=== PATIENT | female | born 1990 | race Caucasian/White ===

== ENCOUNTER 2020-04-13 08:33 | Emergency (ER) | payer BC ==
[~2020-04-13] VITALS: Ht 157.5 cm; Wt 100.0 kg
[~2020-04-13 08:33] MED LIST: ONDA8TAB9 PO
[2020-04-13] MEDS ORDERED: ondansetron 4mg rapidly disintigrating tab PO ONE (09:25)
[2020-04-13 10:15] LABS: MONOCYTES # (AUTO) 0.4 X10'3 (0-0.9); WHITE BLOOD COUNT 5.6 X10'3 (4.5-11.0)
[2020-04-13 10:16] LABS: BASOPHILS % (AUTO) 0.5 % (0-1); EOSINOPHILS % (AUTO) 0.3 % (0-6); HEMATOCRIT 46.1 % (35.0-45.0); HEMOGLOBIN 15.9 g/dl (12.0-16.0); LYMPHOCYTES # (AUTO) 1.7 X10'3 (1.1-4.8); LYMPHOCYTES % (AUTO) 30.5 % (21-51); MEAN CORPUSCULAR HEMOGLOBIN 31.4 PG (27.0-31.0); MEAN CORPUSCULAR HGB CONC 34.5 g/dL (33.0-36.5); MEAN PLATELET VOLUME 7.6 FL (7.4-10.4); MONOCYTES % (AUTO) 7.8 % (2-12); NEUTROPHILS # (AUTO) 3.4 X10'3 (1.8-7.7); NEUTROPHILS % (AUTO) 60.9 % (42-75); PLATELET COUNT 209 X10'3 (140-440); RED BLOOD COUNT 5.07 X10'6 (4.20-5.60); RED CELL DISTRIBUTION WIDTH 13.6 % (11.5-14.5)
[2020-04-13 10:21] LABS: ANION GAP 9 (8-16); BLOOD UREA NITROGEN 9 MG/DL (7-18); BUN/CREATININE RATIO 8.7 (6.6-38.0); CALCIUM 8.9 MG/DL (8.5-10.1); CHLORIDE 105 MMOL/L (99-107); CREATININE 1.04 MG/DL (0.40-0.90); GLUCOSE 110 MG/DL (70-104); POTASSIUM 3.8 MMOL/L (3.5-5.1); SODIUM 138 MMOL/L (135-145); eGFR 62 ML/MIN
[2020-04-13 10:23] LABS: D-DIMER 0.32 MG/L FEU (0-0.50)
[2020-04-13] MEDS ORDERED: normal saline 1000ML IV soln IVB ONE ×2 (10:50→12:00)
[2020-04-13] MEDS ORDERED: ONDA4TAB6 PO (13:03)
[2020-04-13] MEDS ORDERED: LOPE-190 PO (13:03)
[2020-04-13 13:54] VITALS: BP 117/76
== END 2020-04-13 13:59 | disposition home or self-care (01) ==
LOC: ER 08:33
DX: U07.1 COVID-19 (principal); R53.1 Weakness; Z88.1 Allergy status to other antibiotic agents; Z79.899 Other long term (current) drug therapy
CPT/HCPCS: 36415; 80048; 85025; 85379; 93005; 96360; 96361; 99284; J7030

== ENCOUNTER 2020-04-15 09:20 | Emergency (ER) | payer BC ==
[~2020-04-15] VITALS: Ht 157.5 cm; Wt 100.0 kg
[~2020-04-15 09:20] MED LIST changes: +LOPE-190 PO; +ONDA4TAB6 PO
[2020-04-15] MEDS ORDERED: acetaminophen 325mg tablet PO STA (10:41)
[2020-04-15] MEDS ORDERED: levoFLOXACIN-Levaquin 750MG/D5 150 ML IV ONE (10:45)
[2020-04-15 12:15] LABS: D-DIMER 0.37 MG/L FEU (0-0.50)
[2020-04-15 12:24] LABS: BASOPHILS % (AUTO) 0.2 % (0-1); EOSINOPHILS % (AUTO) 0.5 % (0-6); HEMATOCRIT 43.7 % (35.0-45.0); HEMOGLOBIN 14.9 g/dl (12.0-16.0); LYMPHOCYTES # (AUTO) 1.4 X10'3 (1.1-4.8); LYMPHOCYTES % (AUTO) 15.9 % (21-51); MEAN CORPUSCULAR HGB CONC 34.2 g/dL (33.0-36.5); MEAN CORPUSCULAR VOLUME 90.7 FL (78-98); MEAN PLATELET VOLUME 7.5 FL (7.4-10.4); MONOCYTES # (AUTO) 0.4 X10'3 (0-0.9); NEUTROPHILS # (AUTO) 6.7 X10'3 (1.8-7.7); NEUTROPHILS % (AUTO) 78.4 % (42-75); PLATELET COUNT 246 X10'3 (140-440); RED BLOOD COUNT 4.82 X10'6 (4.20-5.60); RED CELL DISTRIBUTION WIDTH 13.3 % (11.5-14.5); WHITE BLOOD COUNT 8.6 X10'3 (4.5-11.0)
[2020-04-15 12:31] LABS: ALANINE AMINOTRANSFERASE 69 U/L (12-78); ALBUMIN 3.7 G/DL (3.4-5.0); ALKALINE PHOSPHATASE 93 IU/L (46-116); ANION GAP 11 (8-16); ASPARTATE AMINO TRANSFERASE 43 U/L (10-37); BILIRUBIN,TOTAL 0.6 MG/DL (0.1-1.0); BLOOD UREA NITROGEN 6 MG/DL (7-18); BUN/CREATININE RATIO 6.6 (6.6-38.0); C-REACTIVE PROTEIN 8.04 MG/DL (0.0-0.5); CALCIUM 8.6 MG/DL (8.5-10.1); CHLORIDE 105 MMOL/L (99-107); CREATININE 0.91 MG/DL (0.40-0.90); FERRITIN 397 NG/ML (8-252); GLUCOSE 88 MG/DL (70-104); LACTATE DEHYDROGENASE 332 U/L (81-234); POTASSIUM 3.9 MMOL/L (3.5-5.1); SODIUM 142 MMOL/L (135-145); TOTAL CARBON DIOXIDE 26.1 MMOL/L (24-32); TOTAL PROTEIN 7.5 G/DL (6.4-8.2); eGFR 73 ML/MIN
[2020-04-15] MEDS ORDERED: ALBU6.7H9 INH (13:09)
[2020-04-15] MEDS ORDERED: PRED10TA23 PO (13:09)
[2020-04-15] MEDS ORDERED: AZIT500T PO (13:09)
[2020-04-15 13:22] VITALS: BP 119/83
== END 2020-04-15 14:17 | disposition home or self-care (01) ==
LOC: ER 09:20
DX: U07.1 COVID-19 (principal); J12.89 Other viral pneumonia; Z88.1 Allergy status to other antibiotic agents; Z79.899 Other long term (current) drug therapy
CPT/HCPCS: 36415; 71045; 80053; 82728; 83615; 84145; 85025; 85379; 85384; 86140; 96365; 96366; 99284; J1956